=== PATIENT | male | born 1960 | race African-American/Black ===

== ENCOUNTER 2018-10-28 21:14 | Emergency (ER) | payer OTHER ==
[~2018-10-28] VITALS: Ht 167.6 cm; Wt 69.0 kg
[2018-10-28] MEDS ORDERED: ASPIRIN 81MG TABLET PO ONE ×2 (21:30→21:45)
[2018-10-28] MEDS ORDERED: NITROGLYCERIN OINT 1GM/INCH UDPKT TD ONE (21:30)
[2018-10-28] MEDS ORDERED: ONDANSETRON HCL 4MG/2ML INJ IV STA (21:30)
[2018-10-28] MEDS: NITROGLYCERIN 0.4MG TABLET SL SL PRN ×2 (21:41→21:54)
[2018-10-28] MEDS ORDERED: FENTANYL CITRATE/PF 50MCG/ML 2ML VIAL IV ONE (21:45)
[2018-10-28 22:02] LABS: BASOPHILS % 0.7 % (0.0-2.0); EOSINOPHILS % 2.5 % (0.0-5.0); HEMATOCRIT. 46.2 % (42.0-52.0); HEMOGLOBIN. 15.1 g/dL (14.0-18.0); LYMPHOCYTES % 30.8 % (20.0-50.0); MEAN CORPUSCULAR HEMOGLOBIN 29.7 pg (28.0-32.0); MEAN CORPUSCULAR VOLUME 90.4 fL (80.0-94.0); MEAN PLATELET VOLUME 8.5 fl (7.4-10.4); MONOCYTES % 9.2 % (2.0-8.0); NEUTROPHILS % 56.8 % (40.0-76.0); PLATELET 430 x1000/uL (130-400); RED BLOOD CELL COUNT 5.11 mill/uL (4.7-6.1); RED CELL DISTRIBUTION WIDTH 15.6 % (11.6-14.6)
[2018-10-28 22:05] LABS: PARTIAL THROMBOPLASTIN TIME 30.6 sec (23.4-31.0)
[2018-10-28 22:09] VITALS: BP 120/78
[2018-10-28 22:29] LABS: CHLORIDE 103 mEq/L (98-107)
[2018-10-28 22:34] LABS: ETHANOL BLOOD < 10 mg/dL
== END 2018-10-28 22:54 | disposition short-term general hospital (02) ==
LOC: ER 21:14
DX: R07.89 Other chest pain (principal); R06.02 Shortness of breath; I21.3 ST elevation (STEMI) myocardial infarction of unspecified site; I10 Essential (primary) hypertension; Z88.0 Allergy status to penicillin
CPT/HCPCS: 36415; 71045; 80053; 83690; 83880; 84484; 85025; 85610; 85730; 93005; 96374; 96375; 99291; G0482; J2405; J3010